=== PATIENT | female | born 1995 | race Caucasian/White ===

== ENCOUNTER 2017-09-16 10:17 | Emergency (ER) | payer OTHER ==
[~2017-09-16] VITALS: Ht 162.6 cm; Wt 59.0 kg
[2017-09-16] MEDS ORDERED: MEDROLPACK PO (12:35)
[2017-09-16] MEDS ORDERED: ZYRTEC10 M3 PO (12:38)
== END 2017-09-16 13:01 | disposition home or self-care (01) ==
LOC: ER 10:17
DX: H05.223 Edema of bilateral orbit (principal); L55.9 Sunburn, unspecified